=== PATIENT | male | born 1960 | race Caucasian/White ===

== ENCOUNTER 2023-02-14 13:10 | Emergency (ER) | payer BC ==
[~2023-02-14] VITALS: Ht 160 cm; Wt 68.0 kg
[2023-02-14 13:37] VITALS: BP 129/85
== END 2023-02-14 15:46 | disposition home or self-care (01) ==
LOC: ER 13:10
DX: S63.502A Unspecified sprain of left wrist, initial encounter (principal); W19.XXXA Unspecified fall, initial encounter
CPT/HCPCS: 29125; 73110; 96372-59; 99283-25; J1885

== ENCOUNTER 2023-02-15 11:56 | Inpatient (IN) | payer BC ==
[~2023-02-15] VITALS: Ht 160 cm; Wt 69.6 kg
[2023-02-15 14:31] LABS: BASOPHILS ABSOLUTE AUTO 0.04 K/mm3 (0.00-0.23); BASOPHILS PERCENT AUTO 0 % (0-2); EOSINOPHILS ABSOLUTE AUTO 0.05 K/mm3 (0.00-0.68); EOSINOPHILS PERCENT AUTO 0 % (0-6); Hematocrit 40.6 % (37.0-53.0); Hemoglobin 14.4 g/dL (13.5-17.5); IMMATURE GRAN ABSOLUTE AUTO 0.06 K/mm3 (0.00-0.10); IMMATURE GRAN PERCENT AUTO 0 % (0-1); LYMPHOCYTES ABSOLUTE AUTO 1.53 K/mm3 (0.84-5.20); LYMPHOCYTES PERCENT AUTO 10 % (21-46); MONOCYTES ABSOLUTE AUTO 1.02 K/mm3 (0.16-1.47); MONOCYTES PERCENT AUTO 6 % (4-13); Mean Corpuscular HGB 31.1 pg (26.0-34.0); Mean Corpuscular HGB Conc 35.5 g/dL (31.5-36.5); Mean Corpuscular Volume 88 fL (80-100); Mean Platelet Volume 10.1 fL (9.1-12.4); NEUTROPHILS ABSOLUTE AUTO 13.38 K/mm3 (1.96-9.15); NEUTROPHILS PERCENT AUTO 83 % (41-73); Platelet Count 212 K/mm3 (150-400); RDW Coefficient Variation 13.3 % (11.7-14.2); RDW Standard Deviation 42.7 fL (35.1-46.3); Red Blood Cell Count 4.63 M/mm3 (4.30-5.90); White Blood Cell Count 16.08 K/mm3 (4.00-11.30)
[2023-02-15 15:05] LABS: Albumin, Blood 3.5 g/dL (3.4-5.0); Bilirubin, Total 1.1 mg/dL (0.1-1.0); Bun/Creatinine Ratio 21.5 (12.0-20.0); Calcium, Blood 8.8 mg/dL (8.5-10.1); Creatinine, Blood 0.84 mg/dL (0.60-1.20); Globulin, Blood 3.6 g/dL (2.2-4.0); Potassium, Blood 3.4 mmol/L (3.5-5.5); Total Protein, Blood 7.1 g/dL (6.4-8.2)
[2023-02-15 21:07] VITALS: BP 117/103
--- NOTE | 2023-02-16 04:37 | NUR ---
PATIENT A/OX4, UP INDEPENDENTLY IN ROOM. L HAND RED/ SWOLLEN, ZOSYN GIVEN TO TREAT. PATIENT REPORTS SEVERE PAIN, MEDICATED WITH TYLENOL AND OXYCODONE AND WAS ABLE TO SLEEP SOME. IV TO R AC WNL, SL BETWEEN ABX. NO NEW CONCERNS THIS SHIFT.
[2023-02-16 04:42] LABS: BASOPHILS ABSOLUTE AUTO 0.03 K/mm3 (0.00-0.23); BASOPHILS PERCENT AUTO 0 % (0-2); EOSINOPHILS ABSOLUTE AUTO 0.06 K/mm3 (0.00-0.68); EOSINOPHILS PERCENT AUTO 0 % (0-6); Hematocrit 40.2 % (37.0-53.0); IMMATURE GRAN ABSOLUTE AUTO 0.07 K/mm3 (0.00-0.10); IMMATURE GRAN PERCENT AUTO 0 % (0-1); LYMPHOCYTES ABSOLUTE AUTO 0.76 K/mm3 (0.84-5.20); LYMPHOCYTES PERCENT AUTO 5 % (21-46); MONOCYTES ABSOLUTE AUTO 0.59 K/mm3 (0.16-1.47); MONOCYTES PERCENT AUTO 4 % (4-13); Mean Corpuscular HGB 30.6 pg (26.0-34.0); Mean Corpuscular HGB Conc 34.8 g/dL (31.5-36.5); Mean Corpuscular Volume 88 fL (80-100); Mean Platelet Volume 10.1 fL (9.1-12.4); NEUTROPHILS ABSOLUTE AUTO 14.36 K/mm3 (1.96-9.15); NEUTROPHILS PERCENT AUTO 91 % (41-73); Platelet Count 204 K/mm3 (150-400); RDW Coefficient Variation 13.2 % (11.7-14.2); RDW Standard Deviation 42.6 fL (35.1-46.3); Red Blood Cell Count 4.57 M/mm3 (4.30-5.90); White Blood Cell Count 15.87 K/mm3 (4.00-11.30)
[2023-02-16 05:13] LABS: Bun/Creatinine Ratio 23.2 (12.0-20.0); Calcium, Blood 8.7 mg/dL (8.5-10.1); Creatinine, Blood 0.82 mg/dL (0.60-1.20); Potassium, Blood 3.8 mmol/L (3.5-5.5)
[2023-02-16 05:24] VITALS: BP 138/104
[2023-02-16 07:21] VITALS: BP 152/93
--- NOTE | 2023-02-16 12:05 | NUR ---
PATEINT IN PAIN DISTRESS FIRST THING THIS AM, PATIENT BECAME VERBALLY ABUSIVE AND SCREAMING, REPORTED TO AND TREATMENT PLANT OPERATOR, NEW PAIN MEDICATIONS ORDERED FOR PATIENT, PATIENT RESTING NOW NO DISTRESS AND DENIES PAIN, NPO STARTED VANCOMYCIN, DR BOWERS TO ROUND ON PATIENT AGAIN TO RE-EVAL FURTHER TREATMENT NEEDS, CALL LIGHT WITH IN REACH
[2023-02-16 12:26] LABS: U Amphetamine Screen DETECTED; U Barbituate Screen Not Detected; U Benzodiazapine Screen Not Detected; U Buprenorphine Screen Not Detected; U Cannabinoids Screen Not Detected; U Cocaine Screen Not Detected; U Methadone Screen Not Detected; U Methamphetamine Screen DETECTED; U Opiates Screen DETECTED; U Oxycodone Screen DETECTED; U Phencyclidine Screen Not Detected; U Propoxyphene Screen Not Detected
[2023-02-16 16:17] VITALS: BP 143/89
--- NOTE | 2023-02-16 18:31 | NUR ---
ALERT AND ORIENTED, MAKES NEEDS KNOWN, PATIETN SLEEPING ALL DAY, WAKES EASILY ORIENTED TO QUESTIONS AND EASILY BACK TO SLEEP, STARTED VANCOMYCIN AND STILL GETTING ZOSYN, MEDICATED FOR PAIN WITH OXYCODONE, DILAUDID, AND IVF INFUSING. PATIENT TO BE NPO AT MIDNIGHT FOR POSSIBLE SURGERY WITH DR BOWERS. TOX SCREEN SENT, PATIENT DENIES TAKING ANY KINDS OF MEDICATION AT HOME. INDEPEDANT IN ROOM, CALL LIGHT WITH IN REACH
[2023-02-16 19:14] VITALS: BP 151/100
[2023-02-17] VITALS (16 sets, daily range): BP systolic 103–181; BP diastolic 78–110
--- NOTE | 2023-02-17 03:59 | NUR ---
PATIENT A/OX4, MUCH CALMER AND COOPERATIVE WITH CARE THIS SHIFT. PAIN BETTER MANAGED TONIGHT AND PATIENT WAS ABLE TO SLEEP SOME. VANCO AND GIGIN ORDERED TO TREAT INFECTION. NPO SINCE MIDNIGHT FOR POSSIBLE SURGICAL INTERVENTION. LR RUNNING AT 100ML/HR. VSS, ON RA. NO NEW CONCERNS OVERNIGHT.
[2023-02-17 05:41] LABS: BASOPHILS ABSOLUTE AUTO 0.02 K/mm3 (0.00-0.23); BASOPHILS PERCENT AUTO 0 % (0-2); EOSINOPHILS ABSOLUTE AUTO 0.13 K/mm3 (0.00-0.68); EOSINOPHILS PERCENT AUTO 1 % (0-6); Hematocrit 39.2 % (37.0-53.0); Hemoglobin 13.3 g/dL (13.5-17.5); IMMATURE GRAN ABSOLUTE AUTO 0.04 K/mm3 (0.00-0.10); IMMATURE GRAN PERCENT AUTO 0 % (0-1); LYMPHOCYTES ABSOLUTE AUTO 1.06 K/mm3 (0.84-5.20); LYMPHOCYTES PERCENT AUTO 8 % (21-46); MONOCYTES ABSOLUTE AUTO 0.77 K/mm3 (0.16-1.47); MONOCYTES PERCENT AUTO 6 % (4-13); Mean Corpuscular HGB 30.2 pg (26.0-34.0); Mean Corpuscular HGB Conc 33.9 g/dL (31.5-36.5); Mean Corpuscular Volume 89 fL (80-100); Mean Platelet Volume 10.6 fL (9.1-12.4); NEUTROPHILS PERCENT AUTO 85 % (41-73); Platelet Count 194 K/mm3 (150-400); RDW Coefficient Variation 13.4 % (11.7-14.2); RDW Standard Deviation 44.1 fL (35.1-46.3); White Blood Cell Count 13.22 K/mm3 (4.00-11.30)
[2023-02-17 06:15] LABS: Albumin, Blood 2.4 g/dL (3.4-5.0); Anion Gap 7 mmol/L (6-16); Blood Urea Nitrogen 15 mg/dL (8-24); Bun/Creatinine Ratio 18.2 (12.0-20.0); C-REACTIVE PROTEIN, EXT RANGE >19.000 mg/dL (0.000-0.300); CO2, Blood 24 mmol/L (21-32); Calcium, Blood 8.5 mg/dL (8.5-10.1); Chloride, Blood 106 mmol/L (98-108); Creatinine, Blood 0.82 mg/dL (0.60-1.20); Glomerular Filtration Rate 100 (60-); Glucose, Blood 95 mg/dL (70-99); Phosphorus, Blood 3.6 mg/dL (2.5-4.9); Potassium, Blood 3.7 mmol/L (3.5-5.5); Sodium, Blood 137 mmol/L (136-145)
--- NOTE | 2023-02-17 10:39 | NUR ---
DR BOWERS ROUNDED ON PATIENT, REVIEWED LEFT HAND CT, PATIENT TO HAVE A I&D, LATER TODAY, PATIENT INFORMED, CONSENT SIGNED
--- NOTE | 2023-02-17 13:12 | NUR ---
PATIENT TO OR NOW, VANCO INFUSING, PATIENT TO BE ROOMED ON SURGIcal floor after surgery, patient denied pain, reported to hydro station operator
--- NOTE | 2023-02-17 14:39 | NUR ---
PRE SURGERY NOTE PT A&OX4, BREATHING RA, CALM, NO COMPLAINTS. L HAND RED AND SWOLLEN. SHIRT AND UNDERWEAR STORED BELOW STRETCHER, REMAINING BELONGINGS REMAINED IN MEDICAL FLOOR ROOM. Ambulatory in Day Surgery Patient confirms NPO status and agrees with scheduled surgery. Pre-Op teaching done. Pt verbalizes understanding.
--- NOTE | 2023-02-17 15:00 | NUR ---
REPORT TO MEENA OLMEDO SUPERVISOR DIE CASTING, PATIENT TO GO TO ROOM 210 AFTER SURGERY, PATIENTS BELONGINGS IN ROOM 210
--- NOTE | 2023-02-17 16:30 | NUR ---
pt arrived to room on stretcher, alert but states he is confused, is able to answer questions appropriately. pt denies n/v, rates pain at 10/10. post op vs commended and stable, provided with analgesia per mar, PO intake. Pt educated that computer equipment is to be used only for patient care, not his own use. Pt agrees to only use his own computer. provided with PO fluids and snack, ice pack to operative hand. Eric wrap and gauze bandage c/d/i, had shows inflammation/swelling indicative of operative swelling.
[2023-02-17 22:31] LABS: Vancomycin, Trough 12.5 ug/mL (5.0-10.0)
[2023-02-18 03:35] VITALS: BP 138/84
[2023-02-18 03:49] LABS: BASOPHILS ABSOLUTE AUTO 0.03 K/mm3 (0.00-0.23); BASOPHILS PERCENT AUTO 0 % (0-2); EOSINOPHILS PERCENT AUTO 0 % (0-6); Hematocrit 37.7 % (37.0-53.0); Hemoglobin 12.8 g/dL (13.5-17.5); IMMATURE GRAN ABSOLUTE AUTO 0.08 K/mm3 (0.00-0.10); IMMATURE GRAN PERCENT AUTO 1 % (0-1); LYMPHOCYTES ABSOLUTE AUTO 1.43 K/mm3 (0.84-5.20); LYMPHOCYTES PERCENT AUTO 8 % (21-46); MONOCYTES ABSOLUTE AUTO 1.03 K/mm3 (0.16-1.47); MONOCYTES PERCENT AUTO 6 % (4-13); Mean Corpuscular HGB 30.3 pg (26.0-34.0); Mean Corpuscular Volume 89 fL (80-100); Mean Platelet Volume 9.7 fL (9.1-12.4); NEUTROPHILS PERCENT AUTO 85 % (41-73); Platelet Count 255 K/mm3 (150-400); RDW Coefficient Variation 13.4 % (11.7-14.2); RDW Standard Deviation 43.8 fL (35.1-46.3); Red Blood Cell Count 4.22 M/mm3 (4.30-5.90); White Blood Cell Count 17.47 K/mm3 (4.00-11.30)
[2023-02-18 04:08] LABS: Magnesium, Blood 2.4 mg/dL (1.6-2.4)
[2023-02-18 04:09] LABS: Albumin, Blood 2.3 g/dL (3.4-5.0); Anion Gap 6 mmol/L (6-16); Blood Urea Nitrogen 17 mg/dL (8-24); Bun/Creatinine Ratio 20.5 (12.0-20.0); CO2, Blood 25 mmol/L (21-32); Calcium, Blood 8.5 mg/dL (8.5-10.1); Chloride, Blood 107 mmol/L (98-108); Creatinine, Blood 0.83 mg/dL (0.60-1.20); Glomerular Filtration Rate 100 (60-); Glucose, Blood 141 mg/dL (70-99); Phosphorus, Blood 4.2 mg/dL (2.5-4.9); Potassium, Blood 4.4 mmol/L (3.5-5.5); Sodium, Blood 138 mmol/L (136-145)
--- NOTE | 2023-02-18 04:12 | NUR ---
SHIFT SUMMARY PO DAY 1 I&D TO THE LEFT HAND NO CHANGES T/O NIGHT, PT SLEPT ALL NIGHT. DRESSING C/D/I. REPORTED PAIN TO THE LEFT HAND, MEDICATED PER EMAR. NO OTHER CONCERNS AT THIS TIME. CALL LIGHT WITHIN REACH.
[2023-02-18 07:33] VITALS: BP 159/90
--- NOTE | 2023-02-18 13:15 | NUR ---
IV LEAKING AT 1200, REMOVED AT THIS TIME. ATTEMPTING TO PLACE NEW LINE.
[2023-02-18 14:34] VITALS: BP 153/94
--- NOTE | 2023-02-18 17:09 | NUR ---
SHIFT SUMMARY POD 1 I&D L HAND DRESSING CHANGED THIS MORNING BY SURGEON, REMAINS CDI. PT REPORTS PAIN MUCH IMPROVED TODAY. CONTINUES TO DO EXERCISES PER PT RECCOMENDATIONS. INDEPENDENTLY AMBULATES IN THE HALLS. IV ABX INFUSING PER EMAR. TOLERATING DIET WELL.
[2023-02-18 19:59] VITALS: BP 161/93
--- NOTE | 2023-02-18 22:00 | NUR ---
PATIENT BECAME VERBALLY AGGRESSIVE WITH RN REGARDING PAIN MEDS. BEHAVIOR ESCALATED WHEN DAY FEATHEREDGE MACHINE OPERATOR TOLD PATIENT HE COULDN'T GO UP TO THE 3RD FLOOR TO WORK, PATIENT ASKED TO SPEEK TO SUPERIOR. MCCLAVE SUP DISCUSSED WITH PATIENT THAT HE WOULD NOT BE ALLOWED TO LEAVE THIS UNIT TO DO WORK FOR THIS HOSPITAL DUE TO RECENT NARCOTIC ADMINISTRATION AND BECAUSE OF [place] [facility] LAWS. PATIENTS AGGRESSION HAS CONTINUALLY ESCALATED THROUGHOUT SHIFT SINCE THEN. FEATHEREDGE MACHINE OPERATOR HAS DISCUSSED BEHAVIOR AND YELLING AT STAFF TWICE WITH PATIENT. WIRE BRUSHER HAS ALSO VISITED PATIENT TWICE FOR REQUESTS TO LEAVE UNIT. SECURITY WAS BEEN CALLED TWICE DUE TO PATIENTS CONTINUALLY ESCALATING BEHAVIOR AND YELLING AT RN THAT HE IS BEING TREATED LIKE A DRUG ADDICT. 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 RN WAS ABLE TO DE-ESCALATE PATIENT BUT DID REMIND PT THAT THIS BEHAVIOR WOULD NOT BE TOLERATED MOVING FORWARD, PAIN IS BEING TREATED PER PATIENTS REQUEST AND THE AGGRESSION/YELLING IS NOT APPROPRIATE. PATIENT HAD NOTABLE BEHAVIORAL ISSUES ON THE MEDICAL UNIT PRIOR TO TRANSFERING TO SURGICAL. WILL CONTINUE TO MONITOR.
[2023-02-19 02:22] VITALS: BP 142/83
[2023-02-19 04:14] LABS: BASOPHILS ABSOLUTE AUTO 0.03 K/mm3 (0.00-0.23); BASOPHILS PERCENT AUTO 0 % (0-2); EOSINOPHILS ABSOLUTE AUTO 0.21 K/mm3 (0.00-0.68); EOSINOPHILS PERCENT AUTO 2 % (0-6); Hematocrit 36.4 % (37.0-53.0); Hemoglobin 12.5 g/dL (13.5-17.5); IMMATURE GRAN ABSOLUTE AUTO 0.06 K/mm3 (0.00-0.10); IMMATURE GRAN PERCENT AUTO 1 % (0-1); LYMPHOCYTES ABSOLUTE AUTO 2.19 K/mm3 (0.84-5.20); LYMPHOCYTES PERCENT AUTO 19 % (21-46); MONOCYTES ABSOLUTE AUTO 1.06 K/mm3 (0.16-1.47); MONOCYTES PERCENT AUTO 9 % (4-13); Mean Corpuscular HGB 30.6 pg (26.0-34.0); Mean Corpuscular HGB Conc 34.3 g/dL (31.5-36.5); Mean Corpuscular Volume 89 fL (80-100); Mean Platelet Volume 9.7 fL (9.1-12.4); NEUTROPHILS ABSOLUTE AUTO 7.72 K/mm3 (1.96-9.15); NEUTROPHILS PERCENT AUTO 69 % (41-73); Platelet Count 231 K/mm3 (150-400); RDW Coefficient Variation 13.2 % (11.7-14.2); RDW Standard Deviation 43.1 fL (35.1-46.3); Red Blood Cell Count 4.09 M/mm3 (4.30-5.90); White Blood Cell Count 11.27 K/mm3 (4.00-11.30)
[2023-02-19 04:35] LABS: Bun/Creatinine Ratio 18.8 (12.0-20.0); Calcium, Blood 8.5 mg/dL (8.5-10.1); Creatinine, Blood 0.85 mg/dL (0.60-1.20); Potassium, Blood 4.1 mmol/L (3.5-5.5)
--- NOTE | 2023-02-19 04:37 | NUR ---
EOS NOTE: PATIENT WAS AGITATED AND ARGUMENTATIVE FROM BEGINNING OF SHIFT, BEHAVIORAL ISSUES NOTED FROM MEDICAL UNIT PRIOR TO TRANSFER TO SURGICAL UNIT. HOTEL OPERATION MANAGER, SECURITY, CHARGE NURSE AWARE WHEN PATIENT SCREAMED AT RN ABOUT HIS PAIN MEDICATION REGIMEN. PATIENT WAS MADE AWARE OF INAPPROPRIATE BEHAVIOR AND SPOKEN TO MULTIPLE TIMES ABOUT YELLING AT STAFF NOT BEING TOLERATED. MEDICALLY PATIENT HAS BEEN STABLE, DRESSING TO LEFT HAND IS IN PLACE C/D/I.
[2023-02-19 07:39] VITALS: BP 160/96
[2023-02-19 13:31] LABS: Vancomycin, Trough 16.2 ug/mL (5.0-10.0)
[2023-02-19 19:35] VITALS: BP 138/85
[2023-02-20 03:09] VITALS: BP 139/80
[2023-02-20 07:24] VITALS: BP 164/107
--- NOTE | 2023-02-20 08:04 | NUR ---
FENDER FINISHER APPROACHED RNS ADVISING THAT PTS BP IS HIGH. DIASTOLIC NOTED OVER 100. I WENT TO PT ROOM TO SL IV ANTIOBIOTIC COMPLETE AND RETAKE BP TO CONFIRM. PT STARTED YELLING AT THIS RN SAYING ITS " JUST A FUCKING BLOOD PRESSURE " YELLING ITS "BULLSHIT" STATING WE WERE GOING TO "KILL" HIM BY KEEPING HIM IN HOSPITAL.THAT HE CANT STAY IN ONE PLACE THIS LONG.PT CONTINUED UNREASONABLE AND CONTINUING TO YELL AT ME. I LEFT ROOM AND ADVISED DAY RN OF SITUATION AND GERARDO BP L 184/102.I CALLED NURSING RUBBER STAMP ASSEMBLER AND ADVISED OF ABOVE.PT WITH TOX SCREEN + ON ADMIT.
[2023-02-20 11:15] VITALS: BP 137/65
--- NOTE | 2023-02-20 14:25 | NUR ---
DR. JONES HERE TO SEE PT, PT IS SOAKING L HAND IN WARM WATER.
[2023-02-20 16:49] VITALS: BP 136/91
--- NOTE | 2023-02-20 17:02 | NUR ---
SUMMARY NPO FOR MOST OF TODAY FOR POSSIBLE I&D, ONLY TAKES TORADOL FOR PAIN, DR. JONES IN THIS AFTERNOON, PT DID NOT HAVE AN I&D TODAY, LUKEWARM WATER SOAKS Q4 HRS WA PER DR. JONES, L ARM ELEVATED ON SLING ON IV POLE, INDENPENDENT IN ROOM, PT AMBULATED DOWN THE HALLS X3 TODAY, NO ACUTE CHANGES THIS SHIFT.
[2023-02-20 20:24] VITALS: BP 152/90
[2023-02-21 01:59] VITALS: BP 163/93
[2023-02-21 07:09] VITALS: BP 164/96
--- NOTE | 2023-02-21 08:25 | NUR ---
SUMMARY PT YELLING AT ME THIS MORNING REGARDING IV TKO.
--- NOTE | 2023-02-21 10:40 | NUR ---
DR. JONES HERE TO SEE PT, PT IS NOT IN ROOM, PT WAS SOAKING HIS L HAND PT PAGED TO RETURN TO ROOM.
--- NOTE | 2023-02-21 10:46 | NUR ---
PT STILL NOT BACK IN ROOM, SECURITY NOTIFIED, PT WAS SEEN DRIVING AWAY OFF CAMPUS PER SECURITY.
--- NOTE | 2023-02-21 11:12 | NUR ---
PT STILL NOT BACK IN ROOM, DR. DUMONT AWARE, PT TO BE DC'D AMA.
[2023-02-21] MEDS ORDERED: Acetaminophen650 M1 PO (11:27)
[2023-02-21] MEDS ORDERED: VISBIOME 112.51 EACH PO (11:27)
[2023-02-21] MEDS ORDERED: AMOCLA875 PO (11:29)
--- NOTE | 2023-02-21 14:23 | NUR ---
PT RETURNED AFTER BEING OFF CAMPUS FOR OVER 4 HRS, PT INFORMED THAT HE HAS BEEN DC'D AMA, PT WAS ANGRY AND YELLING AT STAFF SECURITY WAS CALLED DC INSTRUCTIONS GIVEN BY MARCELO WISDOM BUT PT REFUSED TO SIGN, IV DC'D BY MARCELO WISDOM, PT ESCORTED OUT OF THE BUILDING BY SECURITY, PT'S BELONGINGS GIVEN TO PT.
== END 2023-02-21 12:02 | disposition left against medical advice (07) | DRG 513 ==
LOC: ER 11:56 → MEDS 18:37 → ERHOLD 18:37 → MEDS 20:56 → SURS 02-17 13:00
PROVIDERS: Emergency Medicine; Family Medicine; Orthopaedic Surgery; ADMIT Hospitalist
PROC: 0LN80ZZ Release Left Hand Tendon, Open Approach (ICD-10-PCS; principal; 2023-02-17 14:00)
DX: M65.842 Other synovitis and tenosynovitis, left hand (principal); E87.1 Hypo-osmolality and hyponatremia; L03.114 Cellulitis of left upper limb; M00.9 Pyogenic arthritis, unspecified; E87.6 Hypokalemia; D72.828 Other elevated white blood cell count; D64.9 Anemia, unspecified; R79.89 Other specified abnormal findings of blood chemistry; Z90.89 Acquired absence of other organs; Z53.29 Procedure and treatment not carried out because of patient's decision for other reasons
CPT/HCPCS: 36415; 73200; 73201; 80048; 80053; 80069; 80202; 83735; 85025; 85651; 86140; 87070; 87075; 87147; 87205; 93005; 93010; 94760; 94762; 96365; 96375; 97110; 97165; 97530; 99284-25; A9270; J1100; J1170; J1885; J2250; J2270; J2405; J2543; J2704; J3010; J3370; J7050; J7120; Q9967

== ENCOUNTER 2023-05-20 17:09 | Emergency (ER) | payer BC ==
[~2023-05-20] VITALS: Ht 160 cm; Wt 70.3 kg
[~2023-05-20 17:09] MED LIST: AMOCLA875 PO; Acetaminophen650 M1 PO; VISBIOME 112.51 EACH PO
[2023-05-20 18:05] LABS: BASOPHILS ABSOLUTE AUTO 0.03 K/mm3 (0.00-0.23); BASOPHILS PERCENT AUTO 0 % (0-2); EOSINOPHILS ABSOLUTE AUTO 0.08 K/mm3 (0.00-0.68); EOSINOPHILS PERCENT AUTO 1 % (0-6); Hemoglobin 11.9 g/dL (13.5-17.5); IMMATURE GRAN ABSOLUTE AUTO 0.05 K/mm3 (0.00-0.10); IMMATURE GRAN PERCENT AUTO 0 % (0-1); LYMPHOCYTES ABSOLUTE AUTO 1.79 K/mm3 (0.84-5.20); LYMPHOCYTES PERCENT AUTO 15 % (21-46); MONOCYTES ABSOLUTE AUTO 0.99 K/mm3 (0.16-1.47); MONOCYTES PERCENT AUTO 8 % (4-13); Mean Corpuscular HGB 30.2 pg (26.0-34.0); Mean Corpuscular Volume 89 fL (80-100); Mean Platelet Volume 9.7 fL (9.1-12.4); NEUTROPHILS ABSOLUTE AUTO 9.07 K/mm3 (1.96-9.15); NEUTROPHILS PERCENT AUTO 76 % (41-73); Platelet Count 288 K/mm3 (150-400); RDW Coefficient Variation 13.3 % (11.7-14.2); RDW Standard Deviation 43.4 fL (35.1-46.3); Red Blood Cell Count 3.94 M/mm3 (4.30-5.90); White Blood Cell Count 12.01 K/mm3 (4.00-11.30)
[2023-05-20 18:29] LABS: Albumin, Blood 3.1 g/dL (3.4-5.0); Albumin/Globulin Ratio 0.7 (0.8-1.8); Bilirubin, Total 0.6 mg/dL (0.1-1.0); Bun/Creatinine Ratio 19.9 (12.0-20.0); Calcium, Blood 8.6 mg/dL (8.5-10.1); Creatinine, Blood 0.9 mg/dL (0.60-1.20); Globulin, Blood 4.2 g/dL (2.2-4.0); Potassium, Blood 3.8 mmol/L (3.5-5.5); Total Protein, Blood 7.3 g/dL (6.4-8.2)
[2023-05-20 19:57] LABS: U Amphetamine Screen DETECTED; U Barbituate Screen Not Detected; U Benzodiazapine Screen Not Detected; U Buprenorphine Screen Not Detected; U Cannabinoids Screen Not Detected; U Cocaine Screen Not Detected; U Methadone Screen Not Detected; U Methamphetamine Screen DETECTED; U Opiates Screen Not Detected; U Oxycodone Screen Not Detected; U Phencyclidine Screen Not Detected
[2023-05-20 21:00] VITALS: BP 149/91
[2023-05-20] MEDS ORDERED: Cephalexin500 MG PO (21:10)
[2023-05-20] MEDS ORDERED: Vibramycin100 MG PO (21:10)
== END 2023-05-20 21:15 | disposition home or self-care (01) ==
LOC: ER 17:09
PROVIDERS: Emergency Medicine; Physician Assistant
DX: L03.012 Cellulitis of left finger (principal); F19.10 Other psychoactive substance abuse, uncomplicated
CPT/HCPCS: 73201; 80053; 85025; 85651; 86140; 99284-25; J3370; J7030; Q9967

== ENCOUNTER 2024-08-16 17:45 | Inpatient (IN) | payer SELFPAY ==
[~2024-08-16] VITALS: Ht 160 cm; Wt 73.0 kg
[~2024-08-16 17:45] MED LIST changes: +Cephalexin500 MG PO; +Vibramycin100 MG PO
[2024-08-16 19:41] LABS: BASOPHILS ABSOLUTE AUTO 0.05 K/mm3 (0.00-0.23); BASOPHILS PERCENT AUTO 1 % (0-2); EOSINOPHILS ABSOLUTE AUTO 0.01 K/mm3 (0.00-0.68); EOSINOPHILS PERCENT AUTO 0 % (0-6); Hematocrit 32.4 % (37.0-53.0); Hemoglobin 11.2 g/dL (13.5-17.5); IMMATURE GRAN PERCENT AUTO 1 % (0-1); LYMPHOCYTES ABSOLUTE AUTO 1.24 K/mm3 (0.84-5.20); LYMPHOCYTES PERCENT AUTO 16 % (21-46); MONOCYTES ABSOLUTE AUTO 0.86 K/mm3 (0.16-1.47); MONOCYTES PERCENT AUTO 11 % (4-13); Mean Corpuscular HGB 29.7 pg (26.0-34.0); Mean Corpuscular HGB Conc 34.6 g/dL (31.5-36.5); Mean Corpuscular Volume 86 fL (80-100); Mean Platelet Volume 8.5 fL (9.1-12.4); NEUTROPHILS ABSOLUTE AUTO 5.58 K/mm3 (1.96-9.15); NEUTROPHILS PERCENT AUTO 71 % (41-73); Platelet Count 370 K/mm3 (150-400); RDW Coefficient Variation 13.4 % (11.7-14.2); RDW Standard Deviation 42.3 fL (35.1-46.3); Red Blood Cell Count 3.77 M/mm3 (4.30-5.90); White Blood Cell Count 7.84 K/mm3 (4.00-11.30)
[2024-08-16 20:00] LABS: Albumin, Blood 1.8 g/dL (3.4-5.0); Albumin/Globulin Ratio 0.4 (0.8-1.8); Bilirubin, Total 0.4 mg/dL (0.1-1.0); Bun/Creatinine Ratio 15.5 (12.0-20.0); Calcium, Blood 8.2 mg/dL (8.5-10.1); Creatinine, Blood 0.9 mg/dL (0.60-1.20); Globulin, Blood 4.5 g/dL (2.2-4.0); Potassium, Blood 3.7 mmol/L (3.5-5.5); Total Protein, Blood 6.3 g/dL (6.4-8.2)
[2024-08-16 20:04] LABS: Influenza A, PCR NEGATIVE (NEGATIVE); Influenza B, PCR NEGATIVE (NEGATIVE); Resp Syncytial Virus, PCR NEGATIVE (NEGATIVE); SARS-Cov-2 (COVID-19) PCR, MMC NEGATIVE (NEGATIVE)
[2024-08-16 22:48] LABS: Source, Urine Clean Catch
[2024-08-16 22:54] LABS: Bilirubin, Urine Neg (Neg); Blood, Urine 2+ (Neg); Glucose Qualitative, Urine Neg (Neg); Ketones, Urine 3+ (Neg); Leukocyte Esterase, Urine Neg (Neg); Nitrite, Urine Neg (Neg); Protein, Urine 2+ (Neg); Specific Gravity, Urine 1.005 (1.003-1.022); Urobilinogen, Urine NORM (Normal)
[2024-08-16 23:19] LABS: Appearance, Urine Clear (Clear); Color, Urine Yellow (P-Yellow)
[2024-08-16 23:20] LABS: Bacteria Few /hpf; Red Blood Cells, Urine 0-2 /hpf (0-2); Squamous Epithelial Cells Few /hpf (Few); White Blood Cells, Urine 0-2 /hpf (0-5)
[2024-08-16] MEDS ORDERED: CefTRIAXone Sodium 1,000 MG in NS 50 ML IV ONE (23:30)
[2024-08-16] MEDS ORDERED: NS 1,000 ML IV SCH (23:30)
[2024-08-16] MEDS ORDERED: Ketorolac Tromethamine 30mg Vial IV ONE (23:30)
[2024-08-16 23:39] LABS: Source, Urine Clean Catch
[2024-08-16 23:43] LABS: Bilirubin, Urine Neg (Neg); Blood, Urine 2+ (Neg); Glucose Qualitative, Urine Neg (Neg); Ketones, Urine 3+ (Neg); Leukocyte Esterase, Urine Neg (Neg); Nitrite, Urine Neg (Neg); Protein, Urine 2+ (Neg); Specific Gravity, Urine 1.005 (1.003-1.022); Urobilinogen, Urine NORM (Normal); pH, Urine 6.5 (5.0-8.0)
[2024-08-17 00:01] LABS: Appearance, Urine Clear (Clear); Bacteria Few /hpf; Color, Urine Yellow (P-Yellow); Red Blood Cells, Urine 0-2 /hpf (0-2); Squamous Epithelial Cells Few /hpf (Few)
[2024-08-17] MEDS ORDERED: LEVO750 PO (00:24)
[2024-08-17] MEDS ORDERED: LevoFLOXacin 750 MG/D5W 150ML 150 ML IV ONE (00:25)
[2024-08-17] MEDS ORDERED: Ketorolac Tromethamine 30mg Vial IV ONE (02:40)
[2024-08-17] MEDS ORDERED: FLU VACC TS2024-25(6MOS UP)/PF 45 MCG/0.5 ML SYRINGE IM ONE (03:20)
[2024-08-17] MEDS ORDERED: Ondansetron HCl 2 MG / ML 2ML Vial IV PRN (03:20)
[2024-08-17] MEDS ORDERED: Acetaminophen 325 MG TABLET PO PRN (03:25)
[2024-08-17 06:19] LABS: BASOPHILS ABSOLUTE AUTO 0.03 K/mm3 (0.00-0.23); BASOPHILS PERCENT AUTO 1 % (0-2); EOSINOPHILS ABSOLUTE AUTO 0.03 K/mm3 (0.00-0.68); EOSINOPHILS PERCENT AUTO 1 % (0-6); Hematocrit 29.9 % (37.0-53.0); Hemoglobin 10.3 g/dL (13.5-17.5); Mean Corpuscular HGB 29.3 pg (26.0-34.0); Mean Corpuscular HGB Conc 34.4 g/dL (31.5-36.5); Mean Corpuscular Volume 85 fL (80-100); Mean Platelet Volume 8.5 fL (9.1-12.4); Platelet Count 307 K/mm3 (150-400); RDW Coefficient Variation 13.4 % (11.7-14.2); RDW Standard Deviation 41.5 fL (35.1-46.3); Red Blood Cell Count 3.51 M/mm3 (4.30-5.90); White Blood Cell Count 4.99 K/mm3 (4.00-11.30)
[2024-08-17 06:22] LABS: IMMATURE GRAN ABSOLUTE AUTO 0.07 K/mm3 (0.00-0.10); IMMATURE GRAN PERCENT AUTO 1 % (0-1); LYMPHOCYTES ABSOLUTE AUTO 1.48 K/mm3 (0.84-5.20); LYMPHOCYTES PERCENT AUTO 30 % (21-46); MONOCYTES ABSOLUTE AUTO 0.58 K/mm3 (0.16-1.47); MONOCYTES PERCENT AUTO 12 % (4-13); NEUTROPHILS PERCENT AUTO 56 % (41-73)
[2024-08-17 06:41] LABS: BASOPHILS PERCENT MAN 0 % (0-2); EOSINOPHILS ABSOLUTE MAN 0.04 K/mm3 (0.00-0.68); EOSINOPHILS PERCENT MAN 1 % (0-6); LYMPHOCYTES % ATYPICAL MANUAL 2 % (0-0); LYMPHOCYTES ABSOLUTE MAN 1.44 K/mm3 (0.84-5.20); LYMPHOCYTES PERCENT MAN 27 % (21-46); MONOCYTES ABSOLUTE MAN 0.54 K/mm3 (0.16-1.47); MONOCYTES PERCENT MAN 11 % (4-13); NEUTROPHILS ABSOLUTE MAN 2.94 K/mm3 (1.96-9.15); SEG NEUTROPHILS PERCENT MAN 59 % (41-73); TOTAL CELLS COUNTED 100
[2024-08-17 06:42] LABS: Magnesium, Blood 2.1 mg/dL (1.6-2.4)
[2024-08-17 06:43] LABS: Albumin, Blood 1.5 g/dL (3.4-5.0); Albumin/Globulin Ratio 0.4 (0.8-1.8); Bilirubin, Total 0.5 mg/dL (0.1-1.0); Bun/Creatinine Ratio 14.9 (12.0-20.0); Calcium, Blood 7.5 mg/dL (8.5-10.1); Creatinine, Blood 0.81 mg/dL (0.60-1.20); Globulin, Blood 3.9 g/dL (2.2-4.0); Total Protein, Blood 5.4 g/dL (6.4-8.2)
[2024-08-17] MEDS ORDERED: Potassium Chloride 20 MEQ in NS 90 ML IV SCH (07:20)
[2024-08-17] MEDS ORDERED: NS 1,000 ML IV ONE (07:42)
[2024-08-17] MEDS ORDERED: Lactobacil 2-S.Thermo-Bifido 1 1 Cap PO SCH (09:00)
[2024-08-17] MEDS ORDERED: Enoxaparin 40 MG/0.4 ML SYR SC SCH (09:00)
[2024-08-17] MEDS ORDERED: Ketorolac Tromethamine 15mg Vial IV PRN (09:15)
--- NOTE | 2024-08-17 17:16 | NUR ---
SHIFT SUMMARY 1540 RECEIVED PT TO RM 345 FROM ER VIA W/C. PT IS A&O, INDEPENDENT, AND ABLE TO TX SELF TO BED. PT ADMITTED FOR PYLEONEPHRITIS/UTI. PER REPORT, PT RECEIVING IVF'S AND IV ABX. GI PANEL ORDERED D/T PT REPORTING DIARRHEA; TO BE OBTAINED. PT WITH HX OF ETOH ABUSE AND POLYSUBSTANCE ABUSE. PT DENIED CURRENT USE. PT ALSO ADMITTED FOR HIGH SI WITH 1:1 SITTER. PER REPORT, PT HAD PLACED A CORD AROUND HIS NECK IN ER. PT DENIES SUICIDAL IDEATION AT THIS TIME. PSYCH CONSULT ORDERED AND CALLED. DR GAYLE NOTIFIED AT 1626 AND WILL SEE PT TOMORROW 08/18. PT DENIES FURTHER NEEDS AT THIS TIME.
[2024-08-17 18:02] LABS: U Amphetamine Screen Not Detected; U Barbituate Screen Not Detected; U Benzodiazapine Screen Not Detected; U Buprenorphine Screen Not Detected; U Cannabinoids Screen Not Detected; U Cocaine Screen Not Detected; U Methadone Screen Not Detected; U Methamphetamine Screen Not Detected; U Opiates Screen DETECTED; U Oxycodone Screen Not Detected; U Phencyclidine Screen Not Detected
[2024-08-17 19:22] VITALS: BP 139/88
[2024-08-17] MEDS ORDERED: NS 250 ML IV PRN (20:10)
[2024-08-17] MEDS ORDERED: CefTRIAXone Sodium 1,000 MG in NS 100 ML IV SCH (21:00)
[2024-08-18 00:27] LABS: Adenovirus F 40/41 Not Detected (NOT DETECT); Astrovirus Not Detected (NOT DETECT); Campylobacter Sp Not Detected (NOT DETECT); Cryptosporidium Not Detected (NOT DETECT); Cyclospora Cayetanensis Not Detected (NOT DETECT); E. Coli O157 Not Detected (NOT DETECT); Entamoeba Histolytica Detected (NOT DETECT); Enteroaggregative E. coli-EAEC Not Detected (NOT DETECT); Enteropathogenic E. coli-EPEC Not Detected (NOT DETECT); Enterotoxigenic E. coli-ETEC Not Detected (NOT DETECT); Giardia Lamblia Not Detected (NOT DETECT); Norovirus GI/GII Not Detected (NOT DETECT); Plesiomonas Shigelloides Not Detected (NOT DETECT); Rotavirus A Not Detected (NOT DETECT); Salmonella Sp Not Detected (NOT DETECT); Sapovirus Not Detected (NOT DETECT); Shiga Toxin-prod E. coli-STEC Not Detected (NOT DETECT); Shigella/Enteroin E. coli-EIEC Detected (NOT DETECT); Vibrio Cholerae Not Detected (NOT DETECT); Vibrio Sp Not Detected (NOT DETECT); Yersinia Enterocolitica Not Detected (NOT DETECT)
[2024-08-18 02:30] VITALS: BP 147/91
[2024-08-18] MEDS ORDERED: Potassium Chloride 20 MEQ TabCR PO ONE ×2 (06:30→07:00)
[2024-08-18 06:49] LABS: Hematocrit 29.1 % (37.0-53.0); Hemoglobin 9.8 g/dL (13.5-17.5); Mean Corpuscular HGB 29.5 pg (26.0-34.0); Mean Corpuscular HGB Conc 33.7 g/dL (31.5-36.5); Mean Corpuscular Volume 88 fL (80-100); Mean Platelet Volume 8.3 fL (9.1-12.4); Platelet Count 354 K/mm3 (150-400); RDW Coefficient Variation 13.7 % (11.7-14.2); Red Blood Cell Count 3.32 M/mm3 (4.30-5.90); White Blood Cell Count 5.07 K/mm3 (4.00-11.30)
[2024-08-18 07:15] LABS: Albumin, Blood 1.6 g/dL (3.4-5.0); Albumin/Globulin Ratio 0.4 (0.8-1.8); Bilirubin, Total 0.4 mg/dL (0.1-1.0); Calcium, Blood 7.7 mg/dL (8.5-10.1); Creatinine, Blood 0.85 mg/dL (0.60-1.20); Globulin, Blood 3.6 g/dL (2.2-4.0); Potassium, Blood 3.8 mmol/L (3.5-5.5); Total Protein, Blood 5.2 g/dL (6.4-8.2)
[2024-08-18 07:36] VITALS: BP 140/91
--- NOTE | 2024-08-18 07:50 | NUR ---
AM NOTE: PATIENT AM K LAB RESULT 3.8. PATIENT HAS ORDERED OT DOSE PO K. DR. SOTOMAYOR CAME BY AND ROUND ON PATIENT AT 0740. THIS RN CLARIFY THE ORDERED OT DOSE K PO THIS AM. PER DR. SOTOMAYOR TO HOLD K PO, SINCE AM K LAB RESULT 3.8.
[2024-08-18 08:11] LABS: BASOPHILS PERCENT MAN 0 % (0-2); EOSINOPHILS ABSOLUTE MAN 0.05 K/mm3 (0.00-0.68); EOSINOPHILS PERCENT MAN 1 % (0-6); LYMPHOCYTES % ATYPICAL MANUAL 1 % (0-0); LYMPHOCYTES ABSOLUTE MAN 1.62 K/mm3 (0.84-5.20); LYMPHOCYTES PERCENT MAN 31 % (21-46); MONOCYTES PERCENT MAN 8 % (4-13); NEUTROPHILS ABSOLUTE MAN 2.99 K/mm3 (1.96-9.15); SEG NEUTROPHILS PERCENT MAN 59 % (41-73); TOTAL CELLS COUNTED 100
[2024-08-18] MEDS ORDERED: MetroNIDAZOLE 500 MG Tab PO SCH (09:00)
--- NOTE | 2024-08-18 10:14 | NUR ---
AM SHIFT ASSESSMENT: PATIENT CURRENTLY LAYING IN BED. PATIENT A/OX4, CALM, PLEASANT AND COOPERATIVE c CARE. PATIENT ANSWER TO QUESTIONS APPROPRIATELY AND ABLE TO MAKE NEEDS KNOWN. PATIENT DENIES SI OR HARMING HIMSELF/OTHERS. PATIENT HAS 1:1 SITTER FOR SAFETY. [facility] PATIENT T/O SHIFT. PATIENT HAS A PSYCH CONSULT WAS PLACED 08/17/24, AWAITING FOR FOR PSYCH DOCTOR TO SEE THE PATIENT.
[2024-08-18 16:23] VITALS: BP 131/86
--- NOTE | 2024-08-18 16:54 | NUR ---
SHIFT SUMMARY: PATIENT A/OX4, PLEASANT AND COOPERATIVE c CARE. PATIENT DENIES SI OR HARMING HIMSELF/OTHERS THIS SHIFT. PATIENT HAS 1:1 SITTER OUTSIDE HIS ROOM FOR SAFETY. PATIENT DENIES GENERALIZED PAIN, CP/PRESSURE, SOB, N/V AND DIZZINESS. DR. GAYLE (PSYCIATRIST) CAME BY THIS PM FOR CONSULT, ORDERED LABS/MEDS AND TRANSFERRED TO [facility]. PER DR. GONSALEZ WILL KEEP PATIENT OVERNIGHT, STARTED ON NEW MEDS AND DISCHARGE TO [facility] TOMORROW. PATIENT REPORTS CONSTIPATION, NOTIFIED DR. GONSALEZ. PATIENT HAS GREAT APPETITE, CONTINENT OF BOWEL/BLADDER, AMBULATES TO BATHROOM c SUPERVISION T/O SHIFT. VITAL SIGNS REVIEWED. [facility] PATIENT.
[2024-08-18 17:52] LABS: International Normalized Ratio 1.05; Prothrombin Time Results 11.2 Sec (9.7-11.5)
[2024-08-18 20:30] VITALS: BP 133/78
[2024-08-18] MEDS ORDERED: Lithium Carbonate 300 MG TabCR PO SCH (21:00)
[2024-08-19 05:07] VITALS: BP 135/80
[2024-08-19 05:42] LABS: BASOPHILS ABSOLUTE AUTO 0.03 K/mm3 (0.00-0.23); BASOPHILS PERCENT AUTO 1 % (0-2); EOSINOPHILS ABSOLUTE AUTO 0.05 K/mm3 (0.00-0.68); EOSINOPHILS PERCENT AUTO 1 % (0-6); Hematocrit 29.9 % (37.0-53.0); Hemoglobin 10.2 g/dL (13.5-17.5); IMMATURE GRAN ABSOLUTE AUTO 0.19 K/mm3 (0.00-0.10); IMMATURE GRAN PERCENT AUTO 3 % (0-1); LYMPHOCYTES ABSOLUTE AUTO 1.66 K/mm3 (0.84-5.20); LYMPHOCYTES PERCENT AUTO 27 % (21-46); MONOCYTES ABSOLUTE AUTO 0.45 K/mm3 (0.16-1.47); MONOCYTES PERCENT AUTO 7 % (4-13); Mean Corpuscular HGB 30.1 pg (26.0-34.0); Mean Corpuscular HGB Conc 34.1 g/dL (31.5-36.5); Mean Corpuscular Volume 88 fL (80-100); Mean Platelet Volume 8.3 fL (9.1-12.4); NEUTROPHILS ABSOLUTE AUTO 3.73 K/mm3 (1.96-9.15); NEUTROPHILS PERCENT AUTO 61 % (41-73); Platelet Count 371 K/mm3 (150-400); RDW Coefficient Variation 13.6 % (11.7-14.2); RDW Standard Deviation 44.2 fL (35.1-46.3); Red Blood Cell Count 3.39 M/mm3 (4.30-5.90); White Blood Cell Count 6.11 K/mm3 (4.00-11.30)
[2024-08-19 06:20] LABS: Albumin, Blood 1.7 g/dL (3.4-5.0); Albumin/Globulin Ratio 0.4 (0.8-1.8); Bilirubin, Total 0.2 mg/dL (0.1-1.0); Calcium, Blood 8.1 mg/dL (8.5-10.1); Creatinine, Blood 1.08 mg/dL (0.60-1.20); Globulin, Blood 4.1 g/dL (2.2-4.0); Potassium, Blood 4.6 mmol/L (3.5-5.5); Total Protein, Blood 5.8 g/dL (6.4-8.2)
[2024-08-19 06:26] LABS: LDL/HDL RATIO 3.9; Very Low Density Lipoprot Chol 25 mg/dL (6-32)
[2024-08-19 06:28] LABS: CHOL/HDL RATIO 5.9; Cholesterol 153 mg/dL (50-200); HDL Cholesterol 26 mg/dL (>39); Low Density Lipoprotein Chol 102 mg/dL (0-110); Triglycerides 126 mg/dL (30-160)
[2024-08-19 07:05] VITALS: BP 132/80
[2024-08-19 08:00] LABS: Percent Saturation 21.8 % (20.0-50.0)
[2024-08-19] MEDS ORDERED: buPROPion HCL 150 MG TAB.SR.12H PO SCH ×2 (09:00)
[2024-08-19] MEDS ORDERED: Azithromycin 250 MG Tab PO ONE (09:45)
[2024-08-19] MEDS ORDERED: Acetaminophen650 M1 PO (11:23)
[2024-08-19] MEDS ORDERED: METR500 PO (11:24)
[2024-08-19] MEDS ORDERED: LITH300ER PO (11:24)
[2024-08-19] MEDS ORDERED: VISBIOME 112.51 EACH PO (11:24)
--- NOTE | 2024-08-19 14:55 | NUR ---
SHIFT/DISCHARGE SUMMARY: PATIENT HAS HAD NO NEW CHANGES THIS SHIFT. PATIENT A/OX4, CALM, PLEASANT AND COOPERATIVE c CARE. PATIENT DENIES SI OR HARMING HIMSELF/OTHERS THIS SHIFT. PATIENT HAS 1:1 SITTER PER ORDER FOR SAFETY. PATIENT RECEIVED PO ABX/SCHEDULED MEDS PER EMAR. PATIENT DENIES GENERALIZED PAIN, CP/PRESSURE, SOB, N/V AND DIZZINESS. PATIENT HAS GREAT APPETITE, CONTINENT OF BLADDER, AMBULATES TO BATHROOM c SUPERVISION. PATIENT SHOWERED & LINEN CHANGED THIS SHIFT. VITAL SIGNS REVIEWED. PATIENT HAS NO NEW CONCERNED OR COMPLAINTS THIS SHIFT. PIV DC'D. PATIENT DISCHARGE TO [facility] PER ORDER. TR GIVEN TO MARCELO SOLORZANO AT [facility]. DISCHARGE PACKET GIVEN TO PATIENT. RX WAS FAXED TO [facility] PER PATIENT REQUEST. ALL PERSONAL BELONGINGS WERE SENT c THE PATIENT. PATIENT LEFT THE ROOM AT 1455 ESCORTED BY RN'S ROSINA AND ARMAND WELL 1 STONEWORK TRACER TO [facility].
== END 2024-08-19 14:55 | DRG 372 ==
LOC: ER 17:45 → ERHOLD 17:46 → MEDS 17:46
PROVIDERS: Emergency Medicine; Family Medicine; Hospitalist; Physician Assistant; Registered Nurse; Student in an Organized Health Care Education/Training Program; ADMIT Student in an Organized Health Care Education/Training Program
DX: A03.8 Other shigellosis (principal); A04.2 Enteroinvasive Escherichia coli infection; A06.0 Acute amebic dysentery; F33.2 Major depressive disorder, recurrent severe without psychotic features; R45.851 Suicidal ideations; K76.6 Portal hypertension; K74.60 Unspecified cirrhosis of liver; D64.9 Anemia, unspecified; N05.9 Unspecified nephritic syndrome with unspecified morphologic changes; F10.90 Alcohol use, unspecified, uncomplicated; E86.0 Dehydration; F19.11 Other psychoactive substance abuse, in remission; Z91.51 Personal history of suicidal behavior
CPT/HCPCS: 0241U; 36415; 51798; 74177; 80053; 80061; 81001; 82607; 82728; 82746; 83036; 83540; 83550; 83605; 83735; 84443; 85025; 85610; 86592; 87086; 87507; 96365-59; 96366; 96367; 96375; 96376; 99285-25; A9270; G0378; J0696; J1650; J1885; J1956; J3480; J7030; Q9967

== ENCOUNTER 2024-08-19 13:51 | Inpatient (IN) | payer SELFPAY ==
[~2024-08-19] VITALS: Ht 160 cm; Wt 70.5 kg
[~2024-08-19 13:51] MED LIST changes: +LEVO750 PO; +LITH300ER PO; +METR500 PO
[2024-08-19 16:22] VITALS: BP 97/78
--- NOTE | 2024-08-19 18:30 | NUR ---
ADMISSION NOTE PT ARRIVED TO [facility] AT 1504, HE CAME OVER FROM ROOM #345 WITH REBEKAHA AND SECURITY. ALL BELONGS WERE COLLECTED AND TAGGED WITH JS ACUNA. PT SKIN CHECK COMPLETED BY ROSINA AND KATHY RN. NO SKIN ISSUES IDENTIFIED OTHER THAN TWO SPOTS WHERE MYRIAM WERE REMOVED AT [facility], HEALING. PT STATES HE WENT TO THE ER ON WEDNESDAY HE'D BEEN SICK FOR APPROX 2 WEEKS, ON/OFF OVER THAT TIME FROM, WORSENING THIS LAST WEEK. HE FOUND HIMSELF IN TERRIBLE ABD PAIN WITH N/V AND SEVERE DIARRHEA. INITIALLY DX WITH SOLITARIO AND WAS TO BE D/C HOME FROM ER. HE STS HE WAS IN THE ROOM FOR MANY HOURS AND HAD BECOME VERY DISTRESSED OVER THE IDEA OF GOING HOME AND JUST FELT LIKE HE NEEDED TO GIVE UP, HE USED THE CALL LIGHT IN AN ATTEMPT TO CHOKE/HANG HIMSELF, THE CALL LIGHT PULLED OUT OF THE WALL, MAKING THE CODE ALARM GO OFF THUS BRINGING STAFF TO HIS ROOM, PT ENDED UP ADMITTED WITH 1:1 SITTER AND EVENENTUALLY WAS DIAGNOSED WITH SHIGELLA. PT DOES ENDORESE OVER THE YEARS OF HAVING FLEETING THOUGHTS OF SI, ALTHOUGH RARELY AND ONLY IN STRESSFUL SITUATIONS. HE HAS NEVER ATTEMPTED SI AND DOESN'T HAVE A FAMILY HX, NO WEAPONS ACCESSIBLE. HE MOVED TO [facility] FROM [facility] FOR A JOB, HE IS NOW RETURED, STS HE'S 6 MONTHS CLEAN FROM METH AND COCAOINE, ETOH HTO HELP HIM SLEEP ON OCCASION OR JUST SOCIALLY, DENIES EVER USING TOBACCO. HE LIVES IN AN APT UPSTAIRS FROM A SINGLE FAMILY HOME, ALL CHILDREN ARE OUT OF STATE, NO OTHER FAMILY HERE, A S/O CAME FROM [facility] WITH HIM BUT SHE HAS MOVED BACK. HIS ONLY STRESSOR IS FINANCES, HE'S ONLY ON SOCIAL SECURITY AND AFTER HE STARTED DRAWING THAT, THEY CAME AFTER HIM AND STARTED TAKING OUT 30+ YEARS WORTH OF CHILD SUPPORT. 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 HE IS VERY COOPERATIVE AND OPEN ABOUT HIS PAST HX AND HAS ASKED FOR ANY RECOURSES TO HELP HIM MOVE FOREWARD. HE DOESN'T HAVE INSURANCE UNTIL 09/19/24 THROUGH [facility]. WOULD LIKE TO HOOK HIM UP WITH A PATIENT ADVOCATE FROM [facility] TO HELP IN HAVING THE CHARGES FOR THIS VISIT BACK COVERED.
[2024-08-19 19:41] VITALS: BP 122/81
[2024-08-19] MEDS ORDERED: Melatonin 3 MG Tab PO PRN (19:50)
[2024-08-19] MEDS ORDERED: Aluminum Hydroxide 320MG/5ML 473 ML PO PRN (19:50)
[2024-08-19] MEDS ORDERED: HydrOXYzine Pamoate 50 MG Cap PO PRN (19:50)
[2024-08-19] MEDS ORDERED: Polyethylene Glycol 3350 17 gm PO PRN (19:50)
[2024-08-19] MEDS ORDERED: FLU VACC TS2024-25(6MOS UP)/PF 45 MCG/0.5 ML SYRINGE IM SCH (19:50)
[2024-08-19] MEDS ORDERED: Calcium Carbonate 500 MG Tab Chew PO PRN (19:50)
[2024-08-19] MEDS ORDERED: LORazepam 1 MG Tab PO PRN (19:55)
[2024-08-19] MEDS ORDERED: Ibuprofen 600 MG Tab PO PRN (19:55)
[2024-08-19] MEDS ORDERED: Lithium Carbonate 300 MG TabCR PO SCH ×2 (20:00→21:00)
[2024-08-19] MEDS ORDERED: Ondansetron 4 MG SoluTab MM PRN (20:05)
[2024-08-19] MEDS ORDERED: Lactobacil 2-S.Thermo-Bifido 1 1 Cap PO SCH (21:00)
[2024-08-19] MEDS ORDERED: MetroNIDAZOLE 500 MG Tab PO SCH (21:00)
--- NOTE | 2024-08-20 04:16 | NUR ---
Ambrosio is a very pleasant alert and oriented man who states his Suicidal Ideation was only a fleeting thought while he was in the hospital. He also denies HI, VH,TH and AH. He is having no GI symptoms since leaving the hospital. He did come out of his room for snacks, but has otherwise been resting in his room. Will continue close monoitoring every 15 minutes for comfort and safety
[2024-08-20 08:17] VITALS: BP 110/82
[2024-08-20] MEDS ORDERED: Multivitamins 1 Tab PO SCH (09:00)
[2024-08-20] MEDS ORDERED: Misc. Tablet PO SCH (09:00)
--- NOTE | 2024-08-20 17:21 | NUR ---
SHIFT SUMMARY PT HAS BEEN VERY COMPLIANT, COOPERATIVE AND RESPECTFUL DURING SHIFT. HE HAS ENGAGED IN ALL MEALS, GROUP ACTIVITIES AND TV ROOM. HE TOOK A NAP AT ONE POINT FOR APPROX 25 MINUTES. HE HAS DENIED SI/HI/AVH ALL SHIFT AND SPENT TIME WALKING THE HALLWAY FOR HIS DAILY EXERCISE. HE CONTINUES RECEIVING Q15 MIN SAFETY CHECKS
--- NOTE | 2024-08-20 22:34 | NUR ---
SHIFT SUMMARY Pt is A&O, calm, cooperative, eye contact is appropriate. Pt states that his mood is "good," affect is bright and congruent to stated mood. Pt denies SI, HI, and hallucinations. No c/o pain or other medical issues. Pt was out of his room for snack time and returned to his room afterwards. Staff continues to monitor q15m for safety and wellness.
--- NOTE | 2024-08-20 23:17 | NUR ---
Report received from Roberto ROBERTSON. Will continue close observation every 15 minutes for safety and comfort
--- NOTE | 2024-08-21 04:24 | NUR ---
Patient is alert and oriented times four, pleasant and cooperative with staff and his peers. Ambrosio (ADRY) states he has no SI,HI or AVTH during evening assessment. No complaints of abdominal pain or discomfort. Still insists SI while in the hospital was "fleeting". Will continue close monitoring dominick 15 minutes for safety and comfort.
[2024-08-21 08:27] VITALS: BP 124/85
--- NOTE | 2024-08-21 17:09 | NUR ---
SHIFT SUMMARY PT IS VERY ENGAGED IN [place] AND A PLEASURE TO HAVE HERE. HE DENIES SI/HI/AVH, HAS ATTENDED ALL MEALS, SNACKS AND GROUPS AND IS VERY INVOLVED DURING THE GROUP TIME. THE ONLY COMPLAINT THIS EVENING IS THAT "I'M NOT FEELING RIGHT, I FEEL LIKE I'M ON SOMETHING, THAT'S WHAT IT FEELS LIKE" HE WONDERS IF IT'S THE NEW MEDICATION HE STARTED YESTERDAY, DESVENLAFAXINE. VITALS OBTAINED ALL WNL HOWEVER BP SLIGHTLY ELEVATED AT 149/99. STS THAT HE SLEPT ALL DAY INBETWEEN ALL MEALS/GROUPS, CONTINUED Q15 SAFETY CHECKS
[2024-08-21 17:36] VITALS: BP 149/99
[2024-08-21] MEDS ORDERED: Lithium Carbonate 300 MG TabCR PO SCH ×2 (21:00)
[2024-08-21 21:41] VITALS: BP 138/88
[2024-08-22 08:19] VITALS: BP 120/91
--- NOTE | 2024-08-22 17:30 | NUR ---
SHIFT NOTE PT DENIES COOPERATIVE WITH STAFF. HE REFUSED PARTIAL MEDICATIONS THIS SHIFT STATING HE WILL NOT TAKE LITHIUM OR THE DESVENLAFAXINE D/T IT MAKING HIM FEEL TIRED AND GROGGY. HE DENIES ANY SI/HI/AVH THIS SHIFT, BUT WAS QUIET AND HAD VERY LITTLE INTERACTION WITH PEERS. VERY GOAL ORIENTED FOR D/C.
[2024-08-22 21:08] VITALS: BP 115/77
--- NOTE | 2024-08-23 04:36 | NUR ---
Ambrosio is A&OX4, very pleasant and cooperative with cares. He Denied SI, HI and AVTH during evening assessment. He is just anxious to go home. He is concerned about the illness he had in the hospital, although he is not showing symptoms at all, he wants to be sure he follows up on it once he gets out of [facility]. Stated he was feeling much better last night. More awake and like himself. Will continue close monitoring every 15 minutes for comfort and safety
[2024-08-23 07:44] LABS: Prothrombin Time Results 10.7 Sec (9.7-11.5)
[2024-08-23 07:52] LABS: Albumin, Blood 2.7 g/dL (3.4-5.0); Albumin/Globulin Ratio 0.6 (0.8-1.8); Bilirubin, Total 0.2 mg/dL (0.1-1.0); Bun/Creatinine Ratio 33.3 (12.0-20.0); Creatinine, Blood 0.87 mg/dL (0.60-1.20); Globulin, Blood 4.8 g/dL (2.2-4.0); Potassium, Blood 5.1 mmol/L (3.5-5.5); Total Protein, Blood 7.5 g/dL (6.4-8.2)
[2024-08-23 08:04] VITALS: BP 113/79
[2024-08-23 12:08] LABS: Lithium 0.29 mmol/L (0.60-1.20)
--- NOTE | 2024-08-23 17:23 | NUR ---
SHIFT SUMMARY: PT ALERT, ORIENTED AND COOPERATIVE WITH CARE. DENIES SI, HI AND AVH. PT STATES THAT HE IS FEELING MUCH BETTER. PT WAS PRESENT FOR MEALS AND ATTENDED GROUPS. SPENT TIME IN THE DAY ROOM WATCHING TV AND IN HIS ROOM RESTING ON HIS BED.
[2024-08-23 20:18] VITALS: BP 124/102
[2024-08-23] MEDS ORDERED: Lithium Carbonate 300 MG TabCR PO SCH ×2 (21:00)
--- NOTE | 2024-08-24 04:04 | NUR ---
SHIFT SUMMARY PT IS A&OX4, PLEASANT AND COOPERATIVE. HE DENIES ANY SI, HI, THOUGHTS OF SELF HARM OR AVH. PT'S BEDTIME LITHIUM DOSE WAS INCREASED AND PT STATED THAT HE WAS NOT INFORMED OF THE CHANGE BY THE PROVIDER AND ONLY WANTED TO TAKE 300 MG INSTEAD OF THE 600 MG ORDERED. PT RECEIVED PRN MELATONIN AND WENT TO BED SHORTLY AFTER SNACK. HE LATER RECEIVED PRN ATIVAN FOR INSOMNIA HE REPORTED CONTINUED DIFFICULTY SLEEPING. Q15 MINUTE CHECKS TO CONTINUE PER UNIT PROTOCOL AND FOR SAFETY.
[2024-08-24 08:06] VITALS: BP 114/80
--- NOTE | 2024-08-24 12:26 | NUR ---
DISCHARGED AT 1204. PT A/O X4. GIVEN DISCHARGED HOME. PT WALKED TO PERSONAL VEHICHLE IN PARKING LOT. DISCHARGE INSTRUCTIONS GIVEN, PRESCRIPTIONS AND HOME MEDS DISCUSSED, PRESCRIPTIONS PHONED INTO [facility] [phone]. SPOKE TO PHARMACICIST ZINA. TWO PRESCRIPTIONS PHONED INTO, TWO DIFFERENT TIMES. PT DECLINED NICOTINE CESSATION COUSELING OFFERED. EXPLAINED TO PT THAT HIS FOLLOW UP APPOINTMENTS WILL BE CALLED TO HIM [facility] WILL REACH OUT HIS INSURANCE IS NOT ACTIVE AT THIS TIME. VERBAL RETURN OF UNDERSTANDING. BELONGINGS RETURNED TO PT. PT STATED THAT HE THOUGHT HIS STAY WAS BENEFICAL AND THAT HIS MEDICAL ISSUES WERE ADDRESSED ALSO. THANKED FOR BEING HERE AND THE CARE GIVEN.
[2024-08-24] MEDS ORDERED: Lithium Carbonate 300 MG TabCR PO SCH (21:00)
== END 2024-08-24 12:04 | disposition home or self-care (01) | DRG 885 ==
LOC: BHU 13:51
PROVIDERS: Psychiatry & Neurology Psychiatry; ADMIT Student in an Organized Health Care Education/Training Program
DX: F33.3 Major depressive disorder, recurrent, severe with psychotic symptoms (principal); F43.25 Adjustment disorder with mixed disturbance of emotions and conduct; F10.90 Alcohol use, unspecified, uncomplicated; A08.8 Other specified intestinal infections; K70.30 Alcoholic cirrhosis of liver without ascites; Z79.899 Other long term (current) drug therapy
CPT/HCPCS: 36415; 80053; 80178; 85610; A9270